=== PATIENT | female | born 1960 | race Caucasian/White ===

== ENCOUNTER 2019-01-16 01:04 | Emergency (ER) | payer MEDICARE, MEDICAID ==
[~2019-01-16] VITALS: Ht 162.6 cm; Wt 59.0 kg
[2019-01-16 03:35] LABS: CHLORIDE 115 mEq/L (98-107)
[2019-01-16 03:39] LABS: BASOPHILS % 1.1 % (0.0-2.0); EOSINOPHILS % 2.9 % (0.0-5.0); ETHANOL BLOOD < 10 mg/dL; HEMATOCRIT. 33.7 % (36.0-48.0); HEMOGLOBIN. 11.9 g/dL (12.0-16.0); LYMPHOCYTES % 29.3 % (20.0-50.0); MEAN CORPUSCULAR HEMOGLOBIN 33.1 pg (28.0-32.0); MEAN CORPUSCULAR VOLUME 93.8 fL (81.0-99.0); MEAN PLATELET VOLUME 9.4 fl (7.4-10.4); MONOCYTES % 7.7 % (2.0-8.0); PLATELET 106 x1000/uL (130-400); RED BLOOD CELL COUNT 3.59 mill/uL (4.2-5.4)
[2019-01-16] MEDS ORDERED: KETOROLAC 30MG/ML VIAL IV STA (04:25)
[2019-01-16] MEDS ORDERED: KETOROLAC 30MG/ML VIAL IM SCH (04:55)
[2019-01-16 06:39] VITALS: BP 129/81
== END 2019-01-16 06:41 | disposition home or self-care (01) ==
LOC: ER 01:04
DX: M54.30 Sciatica, unspecified side (principal); M54.5 Low back pain; G35 Multiple sclerosis; J45.909 Unspecified asthma, uncomplicated; F17.210 Nicotine dependence, cigarettes, uncomplicated; Z90.49 Acquired absence of other specified parts of digestive tract; Z88.5 Allergy status to narcotic agent; Z88.0 Allergy status to penicillin
CPT/HCPCS: 36415; 80053; 80320; 85025; 93971; 96372; 99284; J1885; G0480

== ENCOUNTER 2019-03-11 18:26 | Emergency (ER) | payer MEDICARE, MEDICAID ==
[~2019-03-11] VITALS: Ht 162.6 cm; Wt 68.0 kg
[2019-03-11] MEDS ORDERED: MORPHINE SULFATE 4 MG/ML CPJ (NOT FOR IM USE) IV ONE (18:45)
[2019-03-11] MEDS ORDERED: ONDANSETRON HCL 4MG/2ML INJ IV ONE (18:45)
[2019-03-11 19:12] LABS: EOSINOPHILS % 2.5 % (0.0-5.0); HEMATOCRIT. 42.2 % (36.0-48.0); HEMOGLOBIN. 14.6 g/dL (12.0-16.0); LYMPHOCYTES % 27.3 % (20.0-50.0); MEAN CORPUSCULAR HEMOGLOBIN 32.5 pg (28.0-32.0); MEAN CORPUSCULAR VOLUME 94.2 fL (81.0-99.0); MEAN PLATELET VOLUME 8.8 fl (7.4-10.4); MONOCYTES % 6.6 % (2.0-8.0); NEUTROPHILS % 62.6 % (40.0-76.0); PLATELET 128 x1000/uL (130-400); RED BLOOD CELL COUNT 4.48 mill/uL (4.2-5.4); RED CELL DISTRIBUTION WIDTH 14.8 % (11.6-14.6)
[2019-03-11 19:18] LABS: PROTHROMBIN TIME 10.4 sec (9.6-11.0)
[2019-03-11 19:19] LABS: CHLORIDE 110 mEq/L (98-107)
[2019-03-11 19:53] LABS: CLARITY URINE CLEAR (CLEAR); COLOR URINE YELLOW (YELLOW); KETONES URINE NEGATIVE (NEGATIVE); LEUKOCYTE ESTERASE URINE TRACE (NEGATIVE); NITRITE URINE NEGATIVE (NEGATIVE); OCCULT BLOOD URINE NEGATIVE (NEGATIVE); PH URINE 5.5 (4.5-8.0); PROTEIN URINE NEGATIVE (NEGATIVE); SPECIFIC GRAVITY URINE 1.006 (1.005-1.030); UROBILINOGEN URINE 0.2 E.U./dL (0.2-1.0)
[2019-03-11 22:38] VITALS: BP 119/75
== END 2019-03-11 22:40 | disposition home or self-care (01) ==
LOC: ER 19:20
DX: R19.7 Diarrhea, unspecified (principal); J45.909 Unspecified asthma, uncomplicated; G35 Multiple sclerosis; Z88.0 Allergy status to penicillin; Z88.6 Allergy status to analgesic agent; Z90.49 Acquired absence of other specified parts of digestive tract
CPT/HCPCS: 36415; 80053; 81003; 83690; 85025; 85610; 96374; 96375; 99283; J2270; J2405